=== PATIENT | male | born 1985 | race Two or more races ===

== ENCOUNTER 2021-08-30 12:04 | Emergency (ER) | payer OTHER ==
[~2021-08-30] VITALS: Ht 175.3 cm; Wt 72.6 kg
[2021-08-30] MEDS ORDERED: diphenhdrAMINE HCL 25 MG CAP PO ONE (12:30)
[2021-08-30] MEDS ORDERED: methylPREDNISolone SOD SUCC 125 MG/2 ML VL IM ONE (12:30)
[2021-08-30] MEDS ORDERED: SODIUM CHLORIDE 0.9% 1,000 ML IV ONE (13:00)
[2021-08-30] MEDS ORDERED: methylPREDNISolone SOD SUCC 125 MG/2 ML VL IV ONE (13:00)
[2021-08-30] MEDS ORDERED: EPIN0.1516 IJ (15:37)
[2021-08-30] MEDS ORDERED: DIPH25CA66 PO (15:37)
[2021-08-30] MEDS ORDERED: PRED20TA2 PO (15:37)
[2021-08-30 15:55] VITALS: BP 99/64
== END 2021-08-30 15:53 | disposition home or self-care (01) ==
LOC: ER 12:04
DX: T78.40XA Allergy, unspecified, initial encounter (principal); Z88.0 Allergy status to penicillin; X58.XXXA Exposure to other specified factors, initial encounter
CPT/HCPCS: 96361; 96372; 96374; 99283; J2930; J7030